=== PATIENT | female | born 1935 | race Caucasian/White ===

== ENCOUNTER 2017-04-27 08:19 | Emergency (ER) | payer OTHER ==
[2017-04-27 08:34] LABS: URINE BILIRUBIN Negative (NEGATIVE); URINE GLUCOSE (UA) Negative (NEGATIVE); URINE KETONE Negative (NEGATIVE); URINE LEUK ESTERASE Negative (NEGATIVE); URINE NITRITE Negative (NEGATIVE); URINE PROTEIN Negative (NEGATIVE); URINE UROBILINOGEN 0.2 (0.2-1.0)
[2017-04-27 08:36] VITALS: BP 144/82; PULSE 86; TEMP 98.4; BMI 35.9
[2017-04-27 08:36] LABS: URINE APPEARANCE SL CLOUDY; URINE BLOOD 2+ (NEGATIVE); URINE COLOR YELLOW
[2017-04-27] MEDS ORDERED: SODIUM CHLORIDE 1,000 ML IV STA (09:02)
--- NOTE | 2017-04-27 09:10 | PDOC ---
History of Present Illness - General Chief Complaint: Urinary Problem Stated Complaint: back pain Time Seen by Provider: 04/27/17 08:25 History Source: Patient, Old Records Exam Limitations: No Limitations - History of Present Illness Initial Comments: 04/27/17 09:06 81 year old female with past medical history of hypertension, hyperlipidemia, chronic back pain, cholecystectomy and a recent rectocele surgical repair in November 2015 presents with generalized weakness. The patient reports feeling one week of generally weak but no focal symptoms. Denies chest pain, short of breath , recent illnesses, sick contacts, fevers, chills, cough, vomiting, diarrhea, dysuria, pain. Given the circumstances, the patient came in to the ED for further evaluation. Past History - Past Medical History Allergies/Adverse Reactions: Allergies Allergy/AdvReac Type Severity Reaction Status Date / Time Opioids - Morphine Analogues AdvReac Intermediate Verified 04/27/17 08:21 tramadol AdvReac Intermediate diaphoresis Verified 04/27/17 08:21 HTN: Yes Hypercholesterolemia: Yes - Surgical History Cholecystectomy: Yes - Suicide/Smoking/Psychosocial Hx Smoking History: Never smoked Have you smoked in the past 12 months: No Information on smoking cessation initiated: No Hx Alcohol Use: No Drug/Substance Use Hx: No Substance Use Type: None Review of Systems - Review of Systems Able to Perform ROS?: Yes Comments:: 04/27/17 09:06 GENERAL/CONSTITUTIONAL: No fever. +weakness HEAD, EYES, EARS, NOSE AND THROAT: No change in vision. No ear pain or discharge. No sore throat. CARDIOVASCULAR: No chest pain or shortness of breath. RESPIRATORY: No cough, wheezing, or hemoptysis. GASTROINTESTINAL: No abdominal pain, nausea, vomiting, diarrhea, or decreased PO intolerance. GENITOURINARY: No dysuria, frequency, or change in urination. MUSCULOSKELETAL: No joint or muscle swelling or pain. No neck or back pain. SKIN: No rash NEUROLOGIC: No headache, vertigo, loss of consciousness, or change in strength/ sensation. ENDOCRINE: No increased thirst. No abnormal weight change. HEMATOLOGIC/LYMPHATIC: No anemia, easy bleeding, or history of blood clots. ALLERGIC/IMMUNOLOGIC: No hives or skin allergy. *Physical Exam - Vital Signs Last Vital Signs Temp Pulse Resp BP Pulse Ox 98.4 F 86 18 144/82 97 04/27/17 08:20 04/27/17 08:20 04/27/17 08:20 04/27/17 08:20 04/27/17 08:20 - Physical Exam Comments: 04/27/17 09:07 GENERAL: Awake, alert, and fully oriented, in no acute distress. HEAD: No signs of trauma EYES: PERRLA, EOMI, sclera anicteric, conjunctiva clear ENT: Auricles normal inspection, hearing grossly normal, nares patent, oropharynx clear without exudates. NECK: Normal ROM, supple, no lymphadenopathy, JVD, or masses LUNGS: Breath sounds equal, clear to auscultation bilaterally. No wheezes, and no crackles HEART: Regular rate and rhythm, normal S1 and S2, no murmurs, rubs or gallops ABDOMEN: Soft, nontender, normoactive bowel sounds. No guarding, no rebound. No masses EXTREMITIES: Normal range of motion, no edema. No clubbing or cyanosis. No cords, erythema, or tenderness NEUROLOGICAL: Cranial nerves II through XII grossly intact. Normal speech, normal gait SKIN: Warm, Dry, normal turgor, no rashes or lesions noted. Heart Score/ECG Review #1 ECG reviewed & interpreted by me at: 09:10 04/27/17 09:07 NSR 67, no std/candida, normal axis, normal intervals, QTC 433 msec ED Treatment Course - LABORATORY CBC & Chemistry Diagram: 04/27/17 09:10 04/27/17 09:10 - ADDITIONAL ORDERS Additional order review: Laboratory Results 04/27/17 08:30 Urine Color Yellow Urine Appearance Sl cloudy Urine pH 6.0 Ur Specific [place] 1.015 Urine Protein Negative Urine Glucose (UA) Negative Urine Ketones Negative Urine Blood 2+ H Urine Nitrite Negative Urine Bilirubin Negative Urine Urobilinogen 0.2 Medical Decision Making - Medical Decision Making 04/27/17 09:07 Vital Signs Temp Pulse Resp BP Pulse Ox 98.4 F 86 18 144/82 97 04/27/17 08:20 04/27/17 08:20 04/27/17 08:20 04/27/17 08:20 04/27/17 08:20 Patient overall appears nontoxic. He may potentially be the patient feels generally tired and fatigued from a viral syndrome. However, given her age, differential is broad and includes infectious, cardiac, metabolic. We'll obtain labs, urinalysis, EKG and reassess.. 04/27/17 10:54 CBC, BMP 04/27/17 09:10 04/27/17 09:10 CMP Sodium 134 mmol/L (136-145) L 04/27/17 09:10 Potassium 3.6 mmol/L (3.5-5.1) 04/27/17 09:10 Chloride 102 mmol/L (98-107) 04/27/17 09:10 Carbon Dioxide 25 mmol/L (22-28) 04/27/17 09:10 Anion Gap 7 (8-16) L 04/27/17 09:10 BUN 14 mg/dl (7-18) 04/27/17 09:10 Creatinine 0.6 mg/dl (0.6-1.3) 04/27/17 09:10 Creat Clearance w eGFR > 60 (>60) 04/27/17 09:10 Random Glucose 103 mg/dl (74-106) 04/27/17 09:10 Calcium 9.0 mg/dl (8.4-10.2) 04/27/17 09:10 Phosphorus 3.7 mg/dl (2.5-4.6) 04/27/17 09:10 Magnesium 2.0 mg/dL (1.8-2.4) 04/27/17 09:10 Total Bilirubin 0.6 mg/dl (0.2-1.0) 04/27/17 09:10 AST 18 U/L (10-42) D 04/27/17 09:10 ALT 18 U/L (10-40) D 04/27/17 09:10 Alkaline Phosphatase 61 U/L (32-92) D 04/27/17 09:10 Creatine Kinase 88 IU/L (26-192) 04/27/17 09:10 Troponin I < 0.03 ng/ml (0.03-0.50) L 04/27/17 09:10 Total Protein 6.7 g/dl (6.4-8.3) 04/27/17 09:10 Albumin 4.0 g/dl (3.5-5.0) 04/27/17 09:10 Lipase 22 U/L (22-51) 04/27/17 09:10 Urine Test Results Urine Color Yellow 04/27/17 08:30 Urine Appearance Sl cloudy 04/27/17 08:30 Urine pH 6.0 (4.5-8) 04/27/17 08:30 Ur Specific [place] 1.015 (1.005-1.025) 04/27/17 08:30 Urine Protein Negative (NEGATIVE) 04/27/17 08:30 Urine Glucose (UA) Negative (NEGATIVE) 04/27/17 08:30 Urine Ketones Negative (NEGATIVE) 04/27/17 08:30 Urine Blood 2+ (NEGATIVE) H 04/27/17 08:30 Urine Nitrite Negative (NEGATIVE) 04/27/17 08:30 Urine Bilirubin Negative (NEGATIVE) 04/27/17 08:30 Urine RBC 2-5 /hpf (0-3) 04/27/17 08:30 Urine WBC 0.1 (3-5) 04/27/17 08:30 Ur Epithelial Cells Rare /HPF 04/27/17 08:30 Blood work is reviewed and demonstrates no acute findings. Patient had a torn tolerate by mouth. She will follow-up with her primary care doctor in 2 days. It could potentially be secondary to viral syndrome but we'll have her doctor follow up the urine cultures. I discussed the physical exam findings, ancillary test results and final diagnoses with the patient. I answered all of the patient's questions. The patient was satisfied with the care received and felt comfortable with the discharge plan and treatment plan. The patient will call their primary care physician within 24 hours to arrange follow-up and will return to the Emergency Department with any new, persistant or worsening symptoms. *DC/Admit/Observation/Transfer Diagnosis at time of Disposition: Weakness - Discharge Dispostion Disposition: HOME Condition at time of disposition: Stable Admit: No - Referrals Referrals: Milan Velasco MD [Staff Physician] - - Patient Instructions Printed Discharge Instructions: DI for Muscle Weakness Additional Instructions: Call your doctor Saturday to schedule pointed. Please drink plenty fluids and rest.
[2017-04-27 09:11] LABS: URINE WBC 0.1 (3-5)
[2017-04-27 09:27] LABS: BASOPHIL 0.2 % (0-2.0); EOSINOPHIL 1.3 % (0-4.5); MCH 27.6 pg (25.7-33.7); MEAN CELL VOLUME 83.8 fl (80-96); NEUTROPHILS 65.9 % (42.8-82.8); PLATELET COUNT 236 K/MM3 (134-434); RDW 13.3 % (11.6-15.6); WHITE BLOOD COUNT 5.4 K/mm3 (4.0-10.8)
[2017-04-27 09:42] LABS: CPK 88 IU/L (26-192)
[2017-04-27 09:43] LABS: ALK PHOS 61 U/L (32-92); ANION GAP 7 (8-16); BILIRUBIN,TOTAL 0.6 mg/dl (0.2-1.0); CO2 25 mmol/L (22-28); CREATININE 0.6 mg/dl (0.6-1.3); GLUCOSE,RANDOM 103 mg/dl (74-106); PHOSPHOROUS 3.7 mg/dl (2.5-4.6); SGOT/AST 18 U/L (10-42); SGPT/ALT 18 U/L (10-40); TOT PROT 6.7 g/dl (6.4-8.3)
[2017-04-27 10:47] LABS: TROPONIN I (DFP) < 0.03 ng/ml (0.03-0.50)
--- NOTE | 2017-04-30 20:52 | EKG ---
Test Reason : Blood Pressure : / mmHG Vent. Rate : 067 BPM Atrial Rate : 067 BPM P-R Int : 180 ms QRS Dur : 098 ms QT Int : 410 ms P-R-T Axes : 057 -05 025 degrees QTc Int : 433 ms NORMAL SINUS RHYTHM WITH SINUS ARRHYTHMIA NORMAL ECG WHEN COMPARED WITH ECG OF 24-FEB-2000 23:54, NO SIGNIFICANT CHANGE WAS FOUND NO CLINICAL INFORMATION IS AVAILABLE REPEAT EKG IF CLINICALLY INDICATED Confirmed by CARLOTA ANTHONY MD ([id number]) on 04/30/2017 8:51:48 PM Referred By: VALENTIN Confirmed By:CARLOTA ANTHONY MD
== END 2017-04-27 10:59 | disposition home or self-care (01) ==
LOC: FER 08:19
PROC: 3E0337Z Introduction of Electrolytic and Water Balance Substance into Peripheral Vein, Percutaneous Approach (ICD-10-PCS; principal; 2017-04-27)
DX: R53.1 Weakness (principal); I10 Essential (primary) hypertension; E78.5 Hyperlipidemia, unspecified; G89.29 Other chronic pain
CPT/HCPCS: 36415; 80053; 81003; 81015; 83690; 83735; 84100; 84484; 85025; 87086; 93005; 99283-25

== ENCOUNTER 2017-09-05 21:10 | Emergency (ER) | payer OTHER ==
[2017-09-05 21:21] VITALS: BP 148/89; PULSE 88; TEMP 98.2; BMI 36.6
--- NOTE | 2017-09-05 21:22 | PDOC ---
History of Present Illness - History of Present Illness Initial Comments: 09/05/17 21:41 A 81 year old female with past medical history of hypertension, hyperlipidemia, and chronic back pain, who presents with UTI symptoms. Patient states that this is her third UTI in the past 15 months. She has noted increased frequency to urinate but states that it slowly trickles out. She notes a cloudy, odorous urine as well as bladder spasms. She states that shes taken Cipro in past for her UTIs and it has worked out well for her. PAST SURGICAL HISTORY: rectocele surgical repair (November 2015), cholecystectomy FAMILY HISTORY: no pertinent history SOCIAL HISTORY: Pt lives with family. ALLERGIES: morphine, tramadol ROS General: No fevers or chills, no weakness, no weight loss HEENT: No change in vision. No sore throat, No ear pain Cardiovascular: No chest pain or shortness of breath Respiratory:No cough, or wheezing. Gastrointestinal: No nausea, vomiting, diarrhea or constipation, No rectal bleeding Genitourinary: +increased frequency. +cloudy odorous urine output. No dysuria or hematuria. Musculoskeletal: No joint or muscle pain or swelling Neurologic: No headache, vertigo, dizziness or loss of consciousness Psychiatric: No depression Skin: No rashes or easy bruising Endocrine: No increased thirst or abnormal weight change Allergic: No skin or latex allergy All other systems reviewed and normal PE GENERAL: The patient is awake, alert, and fully oriented, in no acute distress. HEAD: Normal with no signs of trauma. EYES: Pupils equal, round and reactive to light, extraocular movements intact, sclera anicteric, conjunctiva clear. BACK: No CVA tenderness to palpation. EXTREMITIES: Normal range of motion, no edema. NEUROLOGICAL: Normal speech, normal gait. PSYCH: Normal mood, normal affect. SKIN: Warm, Dry, normal turgor, no rashes or lesions noted. <Vangie Barfield - Last Filed: 09/05/17 21:41> - General History Source: Patient Exam Limitations: No Limitations - History of Present Illness Initial Comments: A portion of this note was documented by scribe services under my direction. I have reviewed the details of the note, within reason, and agree with the documentation. The case summary and management plan written by me. 09/05/17 21:49 Assessment and plan: This is an 82-year-old female who comes in complaining of a urinary tract infection. Patient has history of similar in the past. Patient is complaining of cloudy urine with bad odor and some bladder spasms. Patient denies any back pain and flank pain fevers or chills. On exam patient had no CVA tenderness or back/flank pain Patient's urinalysis did show a urinary tract infection for which she was started on Cipro first dose was given in the ER and a prescription was sent to a pharmacy Patient will follow-up with her urologist. <Miky Day I - Last Filed: 09/05/17 21:50> - General Chief Complaint: Urinary Problem Stated Complaint: "I HAVE A UTI", C/O LOW ABD PAIN Time Seen by Provider: 09/05/17 21:16 Past History <Vangie Barfield - Last Filed: 09/05/17 21:41> - Past Medical History COPD: No HTN: Yes Hypercholesterolemia: Yes - Surgical History Cholecystectomy: Yes - Suicide/Smoking/Psychosocial Hx Smoking History: Never smoked Have you smoked in the past 12 months: No Information on smoking cessation initiated: No Hx Alcohol Use: (occasional) Drug/Substance Use Hx: No Substance Use Type: None <Miky Day I - Last Filed: 09/05/17 21:50> - Past Medical History Allergies/Adverse Reactions: Allergies Allergy/AdvReac Type Severity Reaction Status Date / Time Opioids - Morphine Analogues AdvReac Intermediate Verified 09/05/17 21:16 tramadol AdvReac Intermediate diaphoresis Verified 09/05/17 21:16 "ALL NARCOTICS" AdvReac Nausea Uncoded 09/05/17 21:16 Home Medications: Ambulatory Orders Ciprofloxacin HCl [Cipro] 500 mg PO BID #10 tablet 09/05/17 Cyclosporine [Restasis] 1 each OP DAILY 09/05/17 Review of Systems - Review of Systems Comments:: 09/05/17 21:42 see HPI <Vangie Barfield - Last Filed: 09/05/17 21:41> *Physical Exam - Vital Signs Last Vital Signs Temp Pulse Resp BP Pulse Ox 98.2 F 88 16 148/89 99 09/05/17 21:10 09/05/17 21:10 09/05/17 21:10 09/05/17 21:10 09/05/17 21:10 - Physical Exam Comments: 09/05/17 21:42 see HPI <Vangie Barfield - Last Filed: 09/05/17 21:41> - Vital Signs Last Vital Signs Temp Pulse Resp BP Pulse Ox 98.2 F 88 16 148/89 99 09/05/17 21:10 09/05/17 21:10 09/05/17 21:10 09/05/17 21:10 09/05/17 21:10 <Miky Day I - Last Filed: 09/05/17 21:50> ED Treatment Course - ADDITIONAL ORDERS Additional order review: Laboratory Results 09/05/17 21:15 Urine Color Yellow Urine Appearance Hazy Urine pH 5.5 Ur Specific [place] 1.010 Urine Protein Negative Urine Glucose (UA) Negative Urine Ketones Negative Urine Blood 2+ H Urine Nitrite Positive Urine Bilirubin Negative Urine Urobilinogen 0.2 Ur Leukocyte Esterase 3+ H <Vangie Barfield - Last Filed: 09/05/17 21:41> *DC/Admit/Observation/Transfer - Attestations Scribe Attestion: 09/05/17 21:42 Documentation prepared by Vangie Barfield, acting as program medical director for Miky Day MD. <Vangie Barfield - Last Filed: 09/05/17 21:41> - Discharge Dispostion Admit: No <Miky Day I - Last Filed: 09/05/17 21:50> Diagnosis at time of Disposition: UTI (urinary tract infection) - Discharge Dispostion Disposition: HOME Condition at time of disposition: Stable - Prescriptions Prescriptions: Ciprofloxacin HCl [Cipro] 500 mg PO BID #10 tablet - Referrals Referrals: Milan Velasco MD [Primary Care Provider] - - Patient Instructions Additional Instructions: Make sure you drink plenty of fluids and stay well-hydrated. Take Cipro 1 tablet twice a day for 5 days. Return to the emergency department immediately with ANY new, persistent or worsening symptoms. Continue any medications as previously prescribed by your physician. You should follow up with your primary doctor as soon as possible regarding today's emergency department visit. . Please make sure your doctor reviews the results of your emergency evaluation. Thank you for coming to the Emergency Department today for your care. It was a pleasure to see you today. Please note that your evaluation is INCOMPLETE until you follow-up with your doctor. - Post Discharge Activity
[2017-09-05 21:30] LABS: PH,URINE 5.5 (4.5-8); URINE BILIRUBIN Negative (NEGATIVE); URINE GLUCOSE (UA) Negative (NEGATIVE); URINE KETONE Negative (NEGATIVE); URINE NITRITE Positive (NEGATIVE); URINE PROTEIN Negative (NEGATIVE); URINE UROBILINOGEN 0.2 (0.2-1.0)
[2017-09-05 21:32] LABS: URINE BLOOD 2+ (NEGATIVE)
[2017-09-05 21:33] LABS: URINE APPEARANCE HAZY; URINE COLOR YELLOW; URINE LEUK ESTERASE 3+ (NEGATIVE)
[2017-09-05] MEDS ORDERED: CIPROFLOXACIN 500 MG TABLET (RESTRICTED TO ID) PO ONE (21:38)
[2017-09-05 21:40] LABS: URINE WBC >100 (0-5)
[2017-09-05] MEDS ORDERED: CIPROFLOXACIN 250 MG TABLET (RESTRICTED TO ID) PO ONE (21:40)
[2017-09-05 21:41] LABS: EPI CELLS FEW /HPF; URINE BACTERIA MANY /hpf (NEGATIVE); WHITE BLOOD CELL CAST FEW /lpf
== END 2017-09-05 21:47 | disposition home or self-care (01) ==
LOC: FER 21:10
DX: N39.0 Urinary tract infection, site not specified (principal); I10 Essential (primary) hypertension; E78.5 Hyperlipidemia, unspecified; G89.29 Other chronic pain
CPT/HCPCS: 81003; 81015; 87086; 87186; 99283-25

== ENCOUNTER → 2021-04-19 | Day surgery (SDC) | payer OTHER | END | disposition home or self-care (01) | LOC: JRADIR 09:36 | PROVIDERS: ATTEND Internal Medicine Geriatric Medicine | PROC: 0G9H3ZX Drainage of Right Thyroid Gland Lobe, Percutaneous Approach, Diagnostic (ICD-10-PCS; principal; 2021-04-19) | DX: C73 Malignant neoplasm of thyroid gland (principal) | CPT/HCPCS: 10005; 76942; 88173; 88305-TC ==